=== PATIENT | male | born 1960 | race Caucasian/White ===

== ENCOUNTER → 2020-12-27 18:48 | Outpatient (CLI) | payer BC, SELFPAY ==
--- NOTE | 2020-12-27 | DI.MRI.S_ITS ---
PROCEDURE: MR LUMBAR SPINE WO CON INDICATIONS: spinal stenosis of lumbar region TECHNIQUE: Noncontrast sagittal T1 spin echo and T2 fast echo, sagittal STIR, axial T1 and T2 fast spin echo through the lumbar spine. In cases with scoliosis, additional coronal T2 fast spin echo may be performed. COMPARISON: None. FINDINGS: Image quality: Excellent. Alignment and Curvature: There is [id number]-[id number] dextrocurvature present, centered at L1-L2. Trace degenerative anterolisthesis of L4 on L5. Trace degenerative retrolisthesis of L2 on L3. Bone Marrow: Marrow is of normal overall signal. No acute vertebral body compression fractures. Old L1 compression fracture. Spinal Cord: Conus medullaris terminates at the L1 level. Visualized cord demonstrates normal signal and size. Paraspinous Soft Tissues: No paravertebral masses. T12-L1: Mild disc bulge. No canal stenosis or foraminal stenosis. L1-L2: No canal stenosis or foraminal stenosis. L2-L3: Severe chronic disc height loss. No significant canal stenosis. Mild left foraminal stenosis. L3-L4: Severe chronic disc height loss. Right posterior lateral osteophyte. Bilateral facet hypertrophy. Mild central canal stenosis. Severe right lateral recess stenosis. Moderate to severe right foraminal narrowing with right L3 nerve root impingement. Mild left foraminal narrowing. L4-L5: Disc bulge. Exuberant facet hypertrophy. Moderate canal stenosis. Moderate right foraminal narrowing with mild flattening deformity on the exiting right L4 nerve root. Mild left foraminal narrowing. L5-S1: Facet joints may be fused. No canal stenosis or foraminal stenosis. IMPRESSION: 1. [id number]-md-dtutzqzo dextroscoliosis is centered at L1-L2. 2. Diffuse degenerative change. 3. At L3-L4, there is mild central canal stenosis, severe right lateral recess stenosis, and moderate to severe right foraminal narrowing. 4. At L4-L5, there is exuberant facet hypertrophy. There is moderate canal stenosis and moderate right foraminal stenosis. Dictated by: Clayton Fields M.D. on 12/27/2020 at 19:38 Approved by: Clayton Fields M.D. on 12/27/2020 at 19:45
== END ==
PROVIDERS: Referring Provider Neurological Surgery; Visit Provider Neurological Surgery
DX: M48.061 Spinal stenosis, lumbar region without neurogenic claudication (principal); M41.86 Other forms of scoliosis, lumbar region
CPT/HCPCS: 72148